=== PATIENT | female | born 1960 | race Caucasian/White ===

== ENCOUNTER 2017-03-21 00:34 | Emergency (ER) | payer SELFPAY ==
[~2017-03-21] VITALS: Ht 160 cm; Wt 70.0 kg
[~2017-03-21 00:34] MED LIST: AMOXICILLIN500 MG PO; ANASTROZOLE1 MG PO; CLONAZEPAM1 M1 OR; DULOXETINE HCL60 MG PO; KLONOPIN1 MG PO; LORTAB 10-325 M1 TAB PO; NAPROSYN500 MG PO; PENICILLN VK500 MG PO; TOFRANIL25 MG OR; VENLAFAXINE HCL75 M1 PO; ZOFRAN ODT4 MG PO
[2017-03-21 02:40] LABS: HEMATOCRIT 41.9 % (37.0-47.0); HEMOGLOBIN 14.6 g/dl (12.0-16.0); IMMATURE GRANULOCYTES 0.3 % (0.0-1.0); MEAN CELL VOLUME 89.9 fL CALC (80.0-100.0); MEAN CORPUSCULAR HGB 31.3 pG CALC (26.0-32.0); MEAN CORPUSCULAR HGB CONC 34.8 g/L CALC (32.0-36.0); NEUT# 8.57 thou/uL (2.00-7.15); RED BLOOD COUNT 4.66 mill/uL (4.20-5.60); RED CELL DISTRI WIDTH 12.3 % (11.5-15.5)
[2017-03-21 02:41] LABS: URINE BILIRUBIN - DIPSTICK NEGATIVE (NEGATIVE); URINE BLOOD DIPSTICK SMALL (NEGATIVE); URINE CLARITY CLEAR; URINE COLOR YELLOW; URINE GLUCOSE - DIPSTICK NEGATIVE (NEGATIVE); URINE KETONE NEGATIVE (NEGATIVE); URINE LEUK ESTERASE NEGATIVE (NEGATIVE); URINE NITRITE - DIPSTICK NEGATIVE (Negative); URINE PH 5.5 (4.5-8.0); URINE PROTEIN - DIPSTICK NEGATIVE (NEG-TRACE); URINE SPECIFIC GRAVITY <=1.005; URINE UROBILINOGEN - DIPSTICK 0.2 E.U./dL (0.2)
[2017-03-21 02:46] LABS: BARBITURATES NEGATIVE (NEGATIVE); COCAINE NEGATIVE (NEGATIVE); METHADONE NEGATIVE (NEGATIVE); OXCYCODONE POSITIVE (NEGATIVE); TETRAHYDROCANNABIONOL NEGATIVE (NEGATIVE); TRICYLIC ANTIDEPRESSANTS NEGATIVE (NEGATIVE)
[2017-03-21 02:56] LABS: URINE RBC 0-2 RBC/hpf (0-5); URINE WBC 0-2 WBC/hpf (0-5)
[2017-03-21 03:02] LABS: ALBUMIN 4.4 g/dL (3.2-5.0); ALKALINE PHOSPHATASE 105 u/l (38-126); ANION GAP 17 (6-22 (CALC)); BILIRUBIN, TOTAL 0.3 mg/dL (0.0-1.4); BUN 9 mg/dL (7-17); BUN/CREATININE RATIO 14 (12-20 (CALC)); CALCIUM 9.2 mg/dL (8.4-10.2); CARBON DIOXIDE 24 mmol/l (22-30); CHLORIDE 103 mmol/l (95-108); CREATININE 0.7 mg/dL (0.5-1.0); ETHYL ALCOHOL 69 mg/dl (0-30); GFR > 60 ML/MIN (>=60 (CALC)); GFR FOR AFR.AMER. > 60 ML/MIN (>=60 (CALC)); GLUCOSE 93 mg/dL (65-105); POTASSIUM 4.3 mmol/l (3.5-5.1); SGOT/AST 26 u/l (14-36); SGPT/ALT 30 u/l (9-52); SODIUM 140 mmol/l (137-146); TOTAL PROTEIN 7.2 g/dL (6.3-8.2)
[2017-03-21] MEDS ORDERED: LORTAB 10-325 M1 TAB PO (03:53)
[2017-03-21] MEDS ORDERED: KLONOPIN0.5 MG PO (03:53)
[2017-03-21 04:30] VITALS: BP 124/82
== END 2017-03-21 04:30 | disposition home or self-care (01) | DRG 880 ==
LOC: ED 00:34
PROVIDERS: Emergency Medicine
DX: F41.9 Anxiety disorder, unspecified (principal); F17.210 Nicotine dependence, cigarettes, uncomplicated; M19.90 Unspecified osteoarthritis, unspecified site; G89.29 Other chronic pain; M54.2 Cervicalgia; Z85.3 Personal history of malignant neoplasm of breast

== ENCOUNTER 2017-08-24 20:31 | Emergency (ER) | payer BC ==
[~2017-08-24] VITALS: Ht 160 cm; Wt 49.0 kg
[~2017-08-24 20:31] MED LIST changes: +KLONOPIN0.5 MG PO
[2017-08-24] MEDS ORDERED: NAPROSYN500 MG PO (20:54)
[2017-08-24 20:57] VITALS: BP 120/80
[2017-08-24] MEDS ORDERED: CYMBALTA30 MG PO (21:02)
== END 2017-08-24 21:10 | disposition home or self-care (01) | DRG 159 ==
LOC: ED 20:31
DX: K08.89 Other specified disorders of teeth and supporting structures (principal); F17.210 Nicotine dependence, cigarettes, uncomplicated; R50.9 Fever, unspecified

== ENCOUNTER 2018-02-06 15:42 | Emergency (ER) | payer BC ==
[~2018-02-06] VITALS: Ht 160 cm; Wt 52.3 kg
[~2018-02-06 15:42] MED LIST changes: +CYMBALTA30 MG PO
[2018-02-06 16:21] LABS: HEMATOCRIT 42.7 % (37.0-47.0); HEMOGLOBIN 14.6 g/dl (12.0-16.0); IMMATURE GRANULOCYTES 0.3 % (0.0-1.0); MEAN CELL VOLUME 89.5 fL CALC (80.0-100.0); MEAN CORPUSCULAR HGB 30.6 pG CALC (26.0-32.0); MEAN CORPUSCULAR HGB CONC 34.2 g/L CALC (32.0-36.0); NEUT# 5.62 thou/uL (2.00-7.15); RED BLOOD COUNT 4.77 mill/uL (4.20-5.60); RED CELL DISTRI WIDTH 12.5 % (11.5-15.5)
[2018-02-06 16:38] LABS: ANION GAP 15 (6-22 (CALC)); BUN 7 mg/dL (7-17); BUN/CREATININE RATIO 14 (12-20 (CALC)); CARBON DIOXIDE 26 mmol/l (22-30); CHLORIDE 98 mmol/l (95-108); CREATININE 0.5 mg/dL (0.5-1.0); GFR > 60 ML/MIN (>=60 (CALC)); GFR FOR AFR.AMER. > 60 ML/MIN (>=60 (CALC)); POTASSIUM 4.4 mmol/l (3.5-5.1); SODIUM 135 mmol/l (137-146)
[2018-02-06 17:31] VITALS: BP 123/87
== END 2018-02-06 17:36 | disposition home or self-care (01) | DRG 103 ==
LOC: ED 15:42
PROVIDERS: Family Medicine
DX: R51 Headache (principal); F17.210 Nicotine dependence, cigarettes, uncomplicated

== ENCOUNTER 2018-03-05 20:31 | Emergency (ER) | payer BC ==
[~2018-03-05] VITALS: Ht 160 cm; Wt 59.1 kg
[2018-03-05 21:02] LABS: HEMOGLOBIN 13.8 g/dl (12.0-16.0); IMMATURE GRANULOCYTES 0.5 % (0.0-1.0); MEAN CELL VOLUME 87.5 fL CALC (80.0-100.0); MEAN CORPUSCULAR HGB 30.2 pG CALC (26.0-32.0); MEAN CORPUSCULAR HGB CONC 34.5 g/L CALC (32.0-36.0); NEUT# 8.48 thou/uL (2.00-7.15); RED BLOOD COUNT 4.57 mill/uL (4.20-5.60); RED CELL DISTRI WIDTH 12.1 % (11.5-15.5)
[2018-03-05 21:15] LABS: ALKALINE PHOSPHATASE 96 u/l (38-126); ANION GAP 12 (6-22 (CALC)); BILIRUBIN, TOTAL 0.5 mg/dL (0.0-1.4); BUN 4 mg/dL (7-17); BUN/CREATININE RATIO 9 (12-20 (CALC)); CARBON DIOXIDE 26 mmol/l (22-30); CHLORIDE 93 mmol/l (95-108); CREATININE 0.5 mg/dL (0.5-1.0); GFR > 60 ML/MIN (>=60 (CALC)); GFR FOR AFR.AMER. > 60 ML/MIN (>=60 (CALC)); POTASSIUM 3.8 mmol/l (3.5-5.1); SGOT/AST 21 u/l (14-36); SGPT/ALT 32 u/l (9-52); TOTAL PROTEIN 6.9 g/dL (6.3-8.2)
[2018-03-05 21:16] LABS: SODIUM 127 mmol/l (137-146)
[2018-03-05] MEDS ORDERED: LORTAB 1010 MG PO (21:29)
[2018-03-05 21:50] VITALS: BP 143/70
== END 2018-03-05 21:54 | disposition home or self-care (01) | DRG 552 ==
LOC: ED 20:31
PROVIDERS: Emergency Medicine
DX: M54.9 Dorsalgia, unspecified (principal); F17.210 Nicotine dependence, cigarettes, uncomplicated; Z91.14 Patient's other noncompliance with medication regimen

== ENCOUNTER 2018-03-09 17:16 | Emergency (ER) | payer BC ==
[~2018-03-09] VITALS: Ht 160 cm; Wt 60.0 kg
[~2018-03-09 17:16] MED LIST changes: +LORTAB 1010 MG PO
[2018-03-09] MEDS ORDERED: FLEXERIL PO (17:41)
[2018-03-09] MEDS ORDERED: MEDDOSEPAK PO (17:41)
[2018-03-09] MEDS ORDERED: VOLTAREN - GENE75 MG PO (17:41)
[2018-03-09 18:05] VITALS: BP 139/74
== END 2018-03-09 18:05 | disposition home or self-care (01) | DRG 951 ==
LOC: ED 17:16
DX: Z76.0 Encounter for issue of repeat prescription (principal); G89.29 Other chronic pain; M54.2 Cervicalgia; M54.9 Dorsalgia, unspecified; I10 Essential (primary) hypertension; F17.210 Nicotine dependence, cigarettes, uncomplicated; Z91.14 Patient's other noncompliance with medication regimen

== ENCOUNTER 2018-10-03 11:32 | Emergency (ER) | payer OTHER ==
[~2018-10-03] VITALS: Ht 157.5 cm; Wt 55.0 kg
[~2018-10-03 11:32] MED LIST changes: +B-121000 MC5; +DICYCLOMINE10 MG PO; +FISH OIL1 CAP; +FLEXERIL PO; +KETOROLAC10 MG PO; +LYRICA100 MG PO; +MEDDOSEPAK PO; +MULTIVITAMI9 PO; +VITAMI16 PO; +VOLTAREN - GENE75 MG PO
[2018-10-03] MEDS ORDERED: TORADOL PO (11:59)
[2018-10-03] MEDS ORDERED: TYLENOL # 31 TA1 PO (12:05)
[2018-10-03 12:54] VITALS: BP 118/55
== END 2018-10-03 12:54 | disposition home or self-care (01) ==
LOC: ED 11:32
DX: S80.02XA Contusion of left knee, initial encounter (principal); S83.32XA Tear of articular cartilage of left knee, current, initial encounter; S63.501A Unspecified sprain of right wrist, initial encounter; I10 Essential (primary) hypertension; F17.200 Nicotine dependence, unspecified, uncomplicated; W19.XXXA Unspecified fall, initial encounter; Y92.009 Unspecified place in unspecified non-institutional (private) residence as the place of occurrence of the external cause
CPT/HCPCS: L1830

== ENCOUNTER → 2018-11-14 | Outpatient (REF) | payer MEDICAID ==
[~2018-11-14] MED LIST changes: +TORADOL PO; +TYLENOL # 31 TA1 PO
== END | disposition home or self-care (01) ==
LOC: MRI 11-08 08:30
PROVIDERS: ATTEND Family Medicine
DX: M25.562 Pain in left knee (principal)

== ENCOUNTER 2018-12-27 19:20 | Emergency (ER) | payer SELFPAY ==
[~2018-12-27] VITALS: Ht 157.5 cm; Wt 54.0 kg
[2018-12-27 20:25] LABS: HEMATOCRIT 43.4 % (37.0-47.0); HEMOGLOBIN 14.5 g/dl (12.0-16.0); IMMATURE GRANULOCYTES 0.3 % (0.0-5.0); MEAN CORPUSCULAR HGB 30.1 pG CALC (26.0-32.0); MEAN CORPUSCULAR HGB CONC 33.4 g/L CALC (32.0-36.0); NEUT# 6.65 thou/uL (2.00-7.15); RED BLOOD COUNT 4.82 mill/uL (4.20-5.60); RED CELL DISTRI WIDTH 12.1 % (11.5-15.5)
[2018-12-27 20:36] LABS: ANION GAP 13 (6-22 (CALC)); BUN 10 mg/dL (7-17); BUN/CREATININE RATIO 19 (12-20 (CALC)); CARBON DIOXIDE 27 mmol/l (22-30); CHLORIDE 105 mmol/l (95-108); CREATININE 0.5 mg/dL (0.5-1.0); GFR > 60 ML/MIN (>=60 (CALC)); GFR FOR AFR.AMER. > 60 ML/MIN (>=60 (CALC)); POTASSIUM 4.5 mmol/l (3.5-5.1); SODIUM 140 mmol/l (137-146)
[2018-12-27 20:43] LABS: ACT PARTIAL THROMBO TIME 28.2 SECONDS (20.0-32.5)
[2018-12-27] MEDS ORDERED: NAPROXEN500 MG PO (21:31)
[2018-12-27 21:41] VITALS: BP 128/38
== END 2018-12-27 21:52 | disposition home or self-care (01) | DRG 558 ==
LOC: ED 19:20
PROVIDERS: Family Medicine
DX: M70.72 Other bursitis of hip, left hip (principal); G90.522 Complex regional pain syndrome I of left lower limb; F17.210 Nicotine dependence, cigarettes, uncomplicated

== ENCOUNTER 2019-06-03 14:43 | Emergency (ER) | payer SELFPAY ==
[~2019-06-03] VITALS: Ht 157.5 cm; Wt 54.5 kg
[~2019-06-03 14:43] MED LIST changes: +NAPROXEN500 MG PO
[2019-06-03] MEDS ORDERED: BACTROBAN TOP (16:43)
[2019-06-03] MEDS ORDERED: KEFLEX500 M1 PO (16:43)
[2019-06-03 16:55] VITALS: BP 136/84
== END 2019-06-03 16:55 | disposition home or self-care (01) | DRG 603 ==
LOC: ED 14:43
DX: L03.113 Cellulitis of right upper limb (principal); L02.511 Cutaneous abscess of right hand; G89.29 Other chronic pain; M79.605 Pain in left leg; I10 Essential (primary) hypertension; F17.210 Nicotine dependence, cigarettes, uncomplicated

== ENCOUNTER 2020-08-21 15:05 | Emergency (ER) | payer BC ==
[~2020-08-21] VITALS: Ht 157.5 cm; Wt 50.0 kg
[~2020-08-21 15:05] MED LIST changes: +BACTROBAN TOP; +KEFLEX500 M1 PO
[2020-08-21 17:05] LABS: URINE BILIRUBIN - DIPSTICK NEGATIVE (NEGATIVE); URINE BLOOD DIPSTICK NEGATIVE (NEGATIVE); URINE COLOR YELLOW; URINE GLUCOSE - DIPSTICK NEGATIVE (NEGATIVE); URINE KETONE NEGATIVE (NEGATIVE); URINE LEUK ESTERASE NEGATIVE (NEGATIVE); URINE NITRITE - DIPSTICK NEGATIVE (Negative); URINE PH 6.5 (4.5-8.0); URINE PROTEIN - DIPSTICK NEGATIVE (NEG-TRACE); URINE SPECIFIC GRAVITY <=1.005; URINE UROBILINOGEN - DIPSTICK 0.2 E.U./dL (0.2)
[2020-08-21 17:06] LABS: HEMATOCRIT 41.3 % (37.0-47.0); HEMOGLOBIN 13.6 g/dl (12.0-16.0); IMMATURE GRANULOCYTES 0.5 % (0.0-5.0); MEAN CELL VOLUME 89.4 fL CALC (80.0-100.0); MEAN CORPUSCULAR HGB 29.4 pG CALC (26.0-32.0); MEAN CORPUSCULAR HGB CONC 32.9 g/dL CAL (32.0-36.0); NEUT# 6.73 thou/uL (2.00-7.15); RED BLOOD COUNT 4.62 mill/uL (4.20-5.60); RED CELL DISTRI WIDTH 12.5 % (11.5-15.5)
[2020-08-21 17:31] LABS: ALBUMIN 4.5 g/dL (3.2-5.0); ALKALINE PHOSPHATASE 86 u/l (38-126); BILIRUBIN, TOTAL 0.5 mg/dL (0.0-1.4); BUN 9 mg/dL (8-23); BUN/CREATININE RATIO 18 (12-20 (CALC)); CARBON DIOXIDE 30 mmol/l (22-30); CREATININE 0.5 mg/dL (0.5-1.0); GFR > 60 ML/MIN (>=60 (CALC)); GFR FOR AFR.AMER. > 60 ML/MIN (>=60 (CALC)); POTASSIUM 4.2 mmol/l (3.5-5.1); SGOT/AST 34 u/l (9-36); TOTAL PROTEIN 7.3 g/dL (6.3-8.2)
[2020-08-21 17:32] LABS: ANION GAP 10 (6-22 (CALC)); CHLORIDE 92 mmol/l (95-108); SODIUM 128 mmol/l (137-146)
[2020-08-21] MEDS ORDERED: CYMBALTA60 MG PO (17:39)
[2020-08-21] MEDS ORDERED: HALDOL1 M1 PO (17:39)
[2020-08-21 17:40] LABS: MYOGLOBIN 28 ng/mL (0 - 62)
[2020-08-21 18:36] VITALS: BP 129/76
--- NOTE | 2020-08-24 16:55 | NUR ---
Patient called for Covid results. Advised patient of positive results. Patient was previously diagnosed on 08/11/20. Patient states she is feeling much better. Advised to return to ED with difficulty breathing or other urgent needs. Patient verbalized understanding.
== END 2020-08-21 18:56 | disposition home or self-care (01) | DRG 102 ==
LOC: ED 15:05
PROVIDERS: Emergency Medicine
DX: R51.9 Headache, unspecified (principal); U07.1 COVID-19; E87.1 Hypo-osmolality and hyponatremia; F41.9 Anxiety disorder, unspecified; I10 Essential (primary) hypertension; F17.200 Nicotine dependence, unspecified, uncomplicated

== ENCOUNTER 2021-02-15 17:40 | Emergency (ER) | payer BC ==
[~2021-02-15] VITALS: Ht 160 cm; Wt 50.0 kg
[~2021-02-15 17:40] MED LIST changes: +CYMBALTA60 MG PO; +HALDOL1 M1 PO
[2021-02-15 18:11] LABS: HEMATOCRIT 41.5 % (37.0-47.0); HEMOGLOBIN 13.5 g/dl (12.0-16.0); IMMATURE GRANULOCYTES 0.5 % (0.0-5.0); MEAN CELL VOLUME 89.4 fL CALC (80.0-100.0); MEAN CORPUSCULAR HGB 29.1 pG CALC (26.0-32.0); MEAN CORPUSCULAR HGB CONC 32.5 g/dL CAL (32.0-36.0); NEUT# 10.19 thou/uL (2.00-7.15); RED BLOOD COUNT 4.64 mill/uL (4.20-5.60); RED CELL DISTRI WIDTH 12.9 % (11.5-15.5)
[2021-02-15 18:40] LABS: ALBUMIN 4.3 g/dL (3.2-5.0); ALKALINE PHOSPHATASE 71 u/l (38-126); BUN 13 mg/dL (8-23); BUN/CREATININE RATIO 22 (12-20 (CALC)); CARBON DIOXIDE 29 mmol/l (22-30); CHLORIDE 100 mmol/l (95-108); CREATININE 0.6 mg/dL (0.5-1.0); GFR > 60 ML/MIN (>=60 (CALC)); GFR FOR AFR.AMER. > 60 ML/MIN (>=60 (CALC)); POTASSIUM 4.8 mmol/l (3.5-5.1); SGOT/AST 34 u/l (9-36); TOTAL PROTEIN 7.4 g/dL (6.3-8.2)
[2021-02-15 18:52] LABS: MYOGLOBIN 21 ng/mL (0 - 62)
[2021-02-15 19:03] LABS: ANION GAP 11 (6-22 (CALC)); BILIRUBIN, TOTAL 0.1 mg/dL (0.0-1.4); SODIUM 135 mmol/l (137-146)
[2021-02-15 20:00] VITALS: BP 115/79
== END 2021-02-15 19:26 | disposition left against medical advice (07) | DRG 313 ==
LOC: ED 17:40
PROVIDERS: Emergency Medicine
DX: R07.9 Chest pain, unspecified (principal); F41.9 Anxiety disorder, unspecified; I10 Essential (primary) hypertension; M54.2 Cervicalgia; M54.9 Dorsalgia, unspecified; G89.29 Other chronic pain; F17.200 Nicotine dependence, unspecified, uncomplicated; Z91.19 Patient's noncompliance with other medical treatment and regimen

== ENCOUNTER 2022-03-10 21:01 | Emergency (ER) | payer OTHER ==
[~2022-03-10] VITALS: Ht 160 cm; Wt 55.4 kg
[2022-03-10 22:13] VITALS: BP 108/84
== END 2022-03-10 22:27 | disposition home or self-care (01) | DRG 556 ==
LOC: ED 21:01
DX: M25.562 Pain in left knee (principal); I10 Essential (primary) hypertension; F41.9 Anxiety disorder, unspecified; F17.210 Nicotine dependence, cigarettes, uncomplicated

== ENCOUNTER 2022-04-10 20:21 | Emergency (ER) | payer OTHER ==
[~2022-04-10] VITALS: Ht 160 cm; Wt 55.5 kg
[2022-04-10 21:37] VITALS: BP 120/92
[2022-04-10 21:41] LABS: HEMATOCRIT 47.3 % (37.0-47.0); IMMATURE GRANULOCYTES 0.1 % (0.0-5.0); MEAN CELL VOLUME 89.2 fL CALC (80.0-100.0); MEAN CORPUSCULAR HGB 29.8 pG CALC (26.0-32.0); MEAN CORPUSCULAR HGB CONC 33.4 g/dL CAL (32.0-36.0); NEUT# 6.01 thou/uL (2.00-7.15); RED BLOOD COUNT 5.3 mill/uL (4.20-5.60); RED CELL DISTRI WIDTH 12.3 % (11.5-15.5)
[2022-04-10 21:42] LABS: HEMOGLOBIN 15.8 g/dl (12.0-16.0)
[2022-04-10 21:45] LABS: ALBUMIN 4.6 g/dL (3.2-5.0); ALKALINE PHOSPHATASE 81 u/l (38-126); BUN 8 mg/dL (8-23); BUN/CREATININE RATIO 15 (12-20 (CALC)); CARBON DIOXIDE 30 mmol/l (22-30); CHLORIDE 99 mmol/l (95-108); CREATININE 0.5 mg/dL (0.5-1.0); GFR FOR AFR.AMER. > 60 ML/MIN (>=60 (CALC)); GFR OTHER RACES > 60 ML/MIN (>=60 (CALC)); SGOT/AST 32 u/l (9-36); SODIUM 135 mmol/l (137-146); TOTAL PROTEIN 7.4 g/dL (6.3-8.2)
[2022-04-10 21:46] LABS: ANION GAP 10 (6-22 (CALC)); POTASSIUM 3.8 mmol/l (3.5-5.1)
[2022-04-10 21:47] LABS: BILIRUBIN, TOTAL 0.3 mg/dL (0.0-1.4)
[2022-04-10] MEDS ORDERED: PREDNISONE50 MG PO (22:53)
[2022-04-10] MEDS ORDERED: VENTOLIN HFA IN (22:53)
[2022-04-10] MEDS ORDERED: ZPAK PO (22:53)
== END 2022-04-10 23:58 | disposition home or self-care (01) | DRG 203 ==
LOC: ED 20:21
PROVIDERS: Emergency Medicine
DX: J20.9 Acute bronchitis, unspecified (principal); I10 Essential (primary) hypertension; F41.9 Anxiety disorder, unspecified; F17.200 Nicotine dependence, unspecified, uncomplicated; Z20.822 Contact with and (suspected) exposure to COVID-19

== ENCOUNTER 2022-11-03 13:08 | Emergency (ER) | payer OTHER ==
[~2022-11-03] VITALS: Ht 160 cm; Wt 49.9 kg
[~2022-11-03 13:08] MED LIST changes: +PREDNISONE50 MG PO; +VENTOLIN HFA IN; +ZPAK PO
[2022-11-03 13:32] VITALS: BP 106/69
[2022-11-03 13:45] VITALS: BP 106/68
[2022-11-03 14:00] VITALS: BP 91/51
[2022-11-03 14:15] VITALS: BP 87/54
[2022-11-03] MEDS ORDERED: ZPAK PO (16:54)
[2022-11-03] MEDS ORDERED: PREDNISONE20 MG PO (16:54)
[2022-11-03] MEDS ORDERED: ZYRTEC10 MG PO (16:54)
[2022-11-03] MEDS ORDERED: PROAIR HFA IN (16:54)
[2022-11-03 17:24] VITALS: BP 87/54
== END 2022-11-03 17:25 | disposition home or self-care (01) | DRG 203 ==
LOC: ED 13:08
DX: J20.9 Acute bronchitis, unspecified (principal); J45.909 Unspecified asthma, uncomplicated; I10 Essential (primary) hypertension; Z85.3 Personal history of malignant neoplasm of breast

== ENCOUNTER 2023-03-21 10:44 | Emergency (ER) | payer OTHER ==
[~2023-03-21] VITALS: Ht 160 cm; Wt 45.0 kg
[2023-03-21] VITALS (7 sets, daily range): BP systolic 119–144; BP diastolic 79–96
[~2023-03-21 10:44] MED LIST changes: +PREDNISONE20 MG PO; +PROAIR HFA IN; +ZYRTEC10 MG PO
[2023-03-21 11:13] LABS: BASO% 0.3 % (0-3); EOS% 0.4 % (0-8); HEMATOCRIT 47.9 % (37.0-47.0); HEMOGLOBIN 15.5 g/dl (12.0-16.0); IMMATURE GRANULOCYTES 0.2 % (0.0-5.0); LYMPH% 18.4 % (15-41); MEAN CELL VOLUME 90.4 fL CALC (80.0-100.0); MEAN CORPUSCULAR HGB 29.2 pG CALC (26.0-32.0); MEAN CORPUSCULAR HGB CONC 32.4 g/dL CAL (32.0-36.0); MONO% 6.3 % (2-13); NEUT# 8.4 thou/uL (2.00-7.15); NEUT% 74.4 % (42-76); RED BLOOD COUNT 5.3 mill/uL (4.20-5.60); RED CELL DISTRI WIDTH 12.2 % (11.5-15.5)
[2023-03-21 11:32] LABS: ALBUMIN 4.7 g/dL (3.2-5.0); ALKALINE PHOSPHATASE 83 u/l (38-126); ANION GAP 13 (6-22 (CALC)); BUN 11 mg/dL (8-23); BUN/CREATININE RATIO 22 (12-20 (CALC)); CARBON DIOXIDE 30 mmol/l (22-30); CHLORIDE 94 mmol/l (95-108); CREATININE 0.5 mg/dL (0.5-1.0); GFR FOR AFR.AMER. > 60 ML/MIN (>=60 (CALC)); GFR OTHER RACES > 60 ML/MIN (>=60 (CALC)); SGOT/AST 50 u/l (9-36); SODIUM 132 mmol/l (137-146); TOTAL PROTEIN 7.6 g/dL (6.3-8.2)
[2023-03-21 11:33] LABS: BILIRUBIN, TOTAL 0.5 mg/dL (0.02-1.3)
[2023-03-21] MEDS ORDERED: KENALOG15 GM/TUBE EX (11:49)
[2023-03-21] MEDS ORDERED: CLOTRIMAZOLE13 EX (11:49)
[2023-03-21] MEDS ORDERED: VENLAFAXINE HCL75 M1 PO (11:50)
[2023-03-21] MEDS ORDERED: TYLENOL # 31 TA1 PO (11:50)
[2023-03-21] MEDS ORDERED: METRONIDAZOLE500 MG PO (11:50)
[2023-03-21 12:03] LABS: TSH, 3RD GENERATION 2.09 uIU/mL (0.47 - 4.68)
== END 2023-03-21 13:11 | disposition home or self-care (01) | DRG 310 ==
LOC: ED 10:44
PROVIDERS: Family Medicine
DX: R00.2 Palpitations (principal); R63.4 Abnormal weight loss; I10 Essential (primary) hypertension; F17.200 Nicotine dependence, unspecified, uncomplicated; Z85.3 Personal history of malignant neoplasm of breast